=== PATIENT | male | born 1985 ===

== ENCOUNTER → 2016-09-09 21:24 | Outpatient (CLI) | payer OTHER ==
[2016-09-09 22:26] LABS: T4 THYROXIN - FREE 1.38 ng/dL (0.76-1.46); THYROID STIMULATING HORMONE 1.19 uIU/mL (0.36-3.74)
== END | disposition home or self-care (01) ==
LOC: D.LABREF 21:24
PROVIDERS: Internal Medicine Interventional Cardiology
DX: R00.0 Tachycardia, unspecified (principal)